=== PATIENT | female | born 1995 | race American Indian/Alaskan Native ===

== ENCOUNTER 2016-11-05 18:29 | Emergency (ER) | payer OTHER ==
[2016-11-05 19:10] LABS: Urine Drugs of Abuse Note Disclamer
[2016-11-05 19:18] LABS: Bilirubin,Urine NEG (Negative); Blood,Urine NEG (Negative); Ketones,Urine NEG (Negative); Leukocyte Esterase,Urine NEG (Negative); Mucus,Urine 1+ /HPF; Nitrite,Urine NEG (Negative); Protein,Urine <15 mg/dL mg/dL (Negative); Urobilinogen,Urine < 2.0 mg/dL (<2.0)
[2016-11-05 19:38] LABS: Basophils % (Auto) 0.5 % (0.0-1.8); Eosinophils % (Auto) 1.5 % (0.0-4.3); Hematocrit 40.8 % (30.3-42.9); Hemoglobin 13.1 gm/dl (10.1-14.3); Mean Corpuscular HGB Conc 32 % (30-34); Mean Corpuscular Hemoglobin 27 pg (28-32); Mean Corpuscular Volume 84 fl (79-97); Platelet Count 308 K/mm3 (140-440); Red Blood Count 4.88 M/mm3 (3.65-5.03); Red Cell Distribution Width 13.4 % (13.2-15.2); White Blood Count 8.3 K/mm3 (4.5-11.0)
[2016-11-05 19:54] LABS: Anion Gap 17 mmol/L; BUN/Creatinine Ratio 15.71; Blood Urea Nitrogen 11 mg/dL (7-17); Calcium 9.4 mg/dL (8.4-10.2); Carbon Dioxide 26 mmol/L (22-30); Chloride 100.7 mmol/L (98-107); Glucose 98 mg/dL (65-100); Potassium 3.8 mmol/L (3.6-5.0); Sodium 140 mmol/L (137-145)
--- NOTE | 2016-11-05 20:20 | Emergency Department Report ---
ED Psych HPI - General Chief Complaint: Psych Stated Complaint: SUICIDAL THOUGHTS Time Seen by Provider: 11/05/16 19:53 Source: patient Mode of arrival: Ambulatory - History of Present Illness Initial Comments: Patient is a 29-year-old female with history of ADHD and depression presents to the ER for suicidal ideations. Patient reports she was brought in by police that she has been feeling "down" and is requesting to be placed back on her second medications. Patient reports been 6 years since her last dose of any of her medications. However patient feels that she should be on her medications due to her highs and lows. Patient does report she did say she thought she would might want to hurt herself today but adamantly denies any plan and wishes not to . Denies hallucinations or hearing voices or homicidal ideations. Patient lives with family and has a steady job at the [employer]. Otherwise no fevers, chills, headaches, nausea, vomiting, chest pain, sugars of breath, abdominal pain, travel, or sick contacts. She also denies any substance abuse or alcohol use. MD Complaint: suicidal ideation - Related Data Home Medications Medication Instructions Recorded Confirmed Last Taken No Known Home Medications [No 11/05/16 11/05/16 Unknown Reported Home Medications] Allergies Allergy/AdvReac Type Severity Reaction Status Date / Time acetaminophen [From Tylenol] Allergy Angioedema Verified 03/02/16 12:45 ED Review of Systems ROS: Stated complaint: SUICIDAL THOUGHTS Other details as noted in HPI Comment: All other systems reviewed and negative ED Past Medical Hx - Past Medical History Previous Medical History?: Yes Hx Psychiatric Treatment: Yes (bi-polar and depression) Additional medical history: galllstones - Surgical History Past Surgical History?: No - Social History Smoking Status: Never Smoker Substance Use Type: Alcohol, Marijuana - Medications Home Medications: Home Medications Medication Instructions Recorded Confirmed Last Taken Type No Known Home Medications [No 11/05/16 11/05/16 Unknown History Reported Home Medications] ED Physical Exam - General Limitations: No Limitations General appearance: alert, in no apparent distress - Head Head exam: Present: atraumatic, normocephalic - Eye Eye exam: Present: normal appearance - ENT ENT exam: Present: mucous membranes moist - Neck Neck exam: Present: normal inspection - Respiratory Respiratory exam: Present: normal lung sounds bilaterally. Absent: respiratory distress - Cardiovascular Cardiovascular Exam: Present: regular rate, normal rhythm. Absent: systolic murmur, diastolic murmur, rubs, gallop - GI/Abdominal GI/Abdominal exam: Present: soft, normal bowel sounds - Extremities Exam Extremities exam: Present: normal inspection - Back Exam Back exam: Present: normal inspection - Neurological Exam Neurological exam: Present: alert, oriented X3 - Psychiatric Psychiatric exam: Present: normal affect, normal mood - Skin Skin exam: Present: warm, dry, intact, normal color. Absent: rash ED Course Vital Signs 11/05/16 11/05/16 19:04 19:05 Temperature 98.4 F Pulse Rate 67 Respiratory 18 18 Rate Blood Pressure 138/84 [Left] O2 Sat by Pulse 99 99 Oximetry ED Medical Decision Making - Lab Data Result diagrams: 11/05/16 19:26 11/05/16 19:26 Critical care attestation.: If time is entered above; I have spent that time in minutes in the direct care of this critically ill patient, excluding procedure time. ED Disposition Condition: Stable
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
[2016-11-06] MEDS: ZOLOFT PO SCH (17:15)
[2016-11-06] MEDS ORDERED: HALDOL IM ONE (20:23)
[2016-11-07] MEDS: ZOLOFT PO SCH (09:45)
--- NOTE | 2016-11-07 17:21 | Event Note ---
Date: 11/07/16 The patient is seen and examined by myself and in consultation with psychiatry on-call, Dr. Hedrick. The patient is not homicidal or suicidal. She has no complaints at this time. She is alert and oriented 3, with a GCS of 15, and an NIH score of 0. Psychiatry recommends a patient 1013 be discontinued. I concur. The patient will be discharged at this time, psychiatry's recommendations are appreciated. Vital Signs 11/05/16 11/05/16 11/06/16 19:04 19:05 06:55 Temperature 98.4 F 98.5 F Pulse Rate 67 64 Respiratory 18 18 18 Rate Blood Pressure 138/84 129/68 [Left] O2 Sat by Pulse 99 99 100 Oximetry 11/06/16 11/06/16 08:30 23:00 Temperature 98.6 F Pulse Rate 72 77 Respiratory 16 16 Rate Blood Pressure 110/71 104/59 [Left] O2 Sat by Pulse 99 99 Oximetry Laboratory Last Values WBC 8.3 K/mm3 (4.5-11.0) 11/05/16 19:26 RBC 4.88 M/mm3 (3.65-5.03) 11/05/16 19:26 Hgb 13.1 gm/dl (10.1-14.3) 11/05/16 19:26 Hct 40.8 % (30.3-42.9) 11/05/16 19:26 MCV 84 fl (79-97) 11/05/16 19:26 MCH 27 pg (28-32) L 11/05/16 19:26 MCHC 32 % (30-34) 11/05/16 19:26 RDW 13.4 % (13.2-15.2) 11/05/16 19:26 Plt Count 308 K/mm3 (140-440) 11/05/16 19:26 Lymph % (Auto) 29.3 % (13.4-35.0) 11/05/16 19:26 [place] % (Auto) 7.2 % (0.0-7.3) 11/05/16 19:26 Eos % (Auto) 1.5 % (0.0-4.3) 11/05/16 19:26 Baso % (Auto) 0.5 % (0.0-1.8) 11/05/16 19:26 Lymph # 2.4 K/mm3 (1.2-5.4) 11/05/16 19:26 [place] # 0.6 K/mm3 (0.0-0.8) 11/05/16 19:26 Eos # 0.1 K/mm3 (0.0-0.4) 11/05/16 19:26 Baso # 0.0 K/mm3 (0.0-0.1) 11/05/16 19:26 Seg Neutrophils % 61.5 % (40.0-70.0) 11/05/16 19:26 Seg Neutrophils # 5.1 K/mm3 (1.8-7.7) 11/05/16 19:26 Sodium 140 mmol/L (137-145) 11/05/16 19:26 Potassium 3.8 mmol/L (3.6-5.0) 11/05/16 19:26 Chloride 100.7 mmol/L (98-107) 11/05/16 19:26 Carbon Dioxide 26 mmol/L (22-30) 11/05/16 19:26 Anion Gap 17 mmol/L 11/05/16 19:26 BUN 11 mg/dL (7-17) 11/05/16 19:26 Creatinine 0.7 mg/dL (0.7-1.2) 11/05/16 19:26 Estimated GFR > 60 ml/min 11/05/16 19:26 BUN/Creatinine Ratio 15.71 % 11/05/16 19:26 Glucose 98 mg/dL (65-100) 11/05/16 19:26 Calcium 9.4 mg/dL (8.4-10.2) 11/05/16 19:26 HCG, Qual Negative (Negative) 11/05/16 19:26 Urine Color Yellow (Yellow) 11/05/16 18:59 Urine Turbidity Clear (Clear) 11/05/16 18:59 Urine pH 5.0 (5.0-7.0) 11/05/16 18:59 Ur Specific [place] 1.015 (1.003-1.030) 11/05/16 18:59 Urine Protein <15 mg/dl mg/dL (Negative) 11/05/16 18:59 Urine Glucose (UA) Neg mg/dL (Negative) 11/05/16 18:59 Urine Ketones Neg mg/dL (Negative) 11/05/16 18:59 Urine Blood Neg (Negative) 11/05/16 18:59 Urine Nitrite Neg (Negative) 11/05/16 18:59 Urine Bilirubin Neg (Negative) 11/05/16 18:59 Urine Urobilinogen < 2.0 mg/dL (<2.0) 11/05/16 18:59 Ur Leukocyte Esterase Neg (Negative) 11/05/16 18:59 Urine WBC (Auto) 4.0 /HPF (0.0-6.0) 11/05/16 18:59 Urine RBC (Auto) 2.0 /HPF (0.0-6.0) 11/05/16 18:59 U Epithel Cells (Auto) 9.0 /HPF (0-13.0) 11/05/16 18:59 Urine Mucus 1+ /HPF 11/05/16 18:59 Urine HCG, Qual Negative (Negative) 11/05/16 18:59 Urine Opiates Screen Presumptive negative 11/05/16 18:59 Urine Methadone Screen Presumptive negative 11/05/16 18:59 Ur Barbiturates Screen Presumptive negative 11/05/16 18:59 Ur Phencyclidine Scrn Presumptive negative 11/05/16 18:59 Ur Amphetamines Screen Presumptive negative 11/05/16 18:59 U Benzodiazepines Scrn Presumptive negative 11/05/16 18:59 Urine Cocaine Screen Presumptive negative 11/05/16 18:59 U Marijuana (THC) Screen Presumptive positive 11/05/16 18:59 Drugs of Abuse Note Disclamer 11/05/16 18:59 Plasma/Serum Alcohol < 0.01 gm% (0-0.07) 11/05/16 19:26
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
[2016-11-07 20:14] VITALS: BP 123/69
== END 2016-11-07 20:15 | disposition home or self-care (01) ==
LOC: ED 18:29 → EEVIPCON 18:29 → ED 11-07 20:15
DX: R45.851 Suicidal ideations (principal); F31.9 Bipolar disorder, unspecified; F12.90 Cannabis use, unspecified, uncomplicated
CPT/HCPCS: 36415; 80048; 80307; 81001; 81025; 84703; 85025; 96372; 99284; G0480; J1630; 80320

== ENCOUNTER 2017-01-14 00:29 | Emergency (ER) | payer SELFPAY ==
[2017-01-14 00:48] VITALS: BP 128/77
[2017-01-14 01:14] LABS: Bilirubin,Urine NEG (Negative); Blood,Urine LG (Negative); Ketones,Urine TR mg/dL (Negative); Leukocyte Esterase,Urine LG (Negative); Mucus,Urine 1+ /HPF; Nitrite,Urine NEG (Negative); Urobilinogen,Urine < 2.0 mg/dL (<2.0)
[2017-01-14 01:14] LABS: Basophils % (Auto) 0.8 % (0.0-1.8); Eosinophils % (Auto) 2.2 % (0.0-4.3); Hemoglobin 12.4 gm/dl (10.1-14.3); Mean Corpuscular HGB Conc 33 % (30-34); Mean Corpuscular Hemoglobin 27 pg (28-32); Mean Corpuscular Volume 83 fl (79-97); Platelet Count 285 K/mm3 (140-440); Red Blood Count 4.59 M/mm3 (3.65-5.03); Red Cell Distribution Width 13.9 % (13.2-15.2); White Blood Count 7.2 K/mm3 (4.5-11.0)
[2017-01-14 01:16] LABS: RBC,Urine > 182.0 /HPF (0.0-6.0); WBC,Urine > 182.0 /HPF (0.0-6.0)
[2017-01-14 01:37] LABS: Albumin 4.3 g/dL (3.9-5); Albumin/Globulin Ratio 1.5 %; Alkaline Phosphatase 60 units/L (35-129); Anion Gap 15 mmol/L; Bilirubin,Total < 0.20 mg/dL (0.1-1.2); Blood Urea Nitrogen 15 mg/dL (7-17); Calcium 8.8 mg/dL (8.4-10.2); Carbon Dioxide 25 mmol/L (22-30); Glucose 106 mg/dL (65-100); Lipase 43 units/L (13-60); Potassium 3.4 mmol/L (3.6-5.0); Sodium 141 mmol/L (137-145); Total Protein 7.2 g/dL (6.3-8.2)
[2017-01-14 02:09] LABS: Alanine Aminotransferase 18 units/L (7-56)
--- NOTE | 2017-01-14 03:35 | Ultrasound Report ---
FINAL REPORT PROCEDURE: US ABDOMEN COMPLETE TECHNIQUE: Real-time sonography in multiple planes of the abdomen was performed with image documentation. CPT 21672 HISTORY: abd pain COMPARISON: No prior studies are available for comparison. FINDINGS: Liver: Normal size and echotexture with no evidence of cystic or solid mass lesions. Gallbladder: There is cholelithiasis. The gallbladder is contracted. There is no gallbladder wall thickening or pericholecystic fluid. Intrahepatic bile ducts: Normal caliber . Extrahepatic bile ducts: Normal caliber. Pancreas: Obscured by bowel gas.. Aorta: Visualized portions appear normal. IVC: Visualized portions appear normal. RIGHT kidney: Normal echotexture. No focal renal mass, calculus, or hydronephrosis. Length: 10.6cm. LEFT kidney: Normal echotexture. No focal renal mass, calculus, or hydronephrosis . Length: 10.3cm. Spleen: Normal size and echotexture. No focal lesions. Intraperitoneal fluid: None . Other: None . IMPRESSION: There is cholelithiasis without specific evidence of cholecystitis or biliary ductal dilatation..
--- NOTE | 2017-01-14 18:13 | ED Elopement Review ---
ED Pt Elopement review - Results review Lab results: Laboratory Tests 01/14/17 01/14/17 01/14/17 00:54 01:00 01:00 WBC 7.2 RBC 4.59 Hgb 12.4 Hct 38.0 MCV 83 MCH 27 L MCHC 33 RDW 13.9 Plt Count 285 Lymph % (Auto) 27.8 [place] % (Auto) 5.4 Eos % (Auto) 2.2 Baso % (Auto) 0.8 Lymph # 2.0 [place] # 0.4 Eos # 0.2 Baso # 0.1 Seg Neutrophils % 63.8 Seg Neutrophils # 4.6 Sodium 141 Potassium 3.4 L Chloride 104.0 Carbon Dioxide 25 Anion Gap 15 BUN 15 Creatinine 0.6 L Estimated GFR > 60 BUN/Creatinine Ratio 25.00 Glucose 106 H Calcium 8.8 Total Bilirubin < 0.20 AST 16 ALT 18 Alkaline Phosphatase 60 Total Protein 7.2 Albumin 4.3 Albumin/Globulin Ratio 1.5 Lipase 43 HCG, Qual Urine Color Yellow Urine Turbidity Cloudy Urine pH 6.0 Ur Specific [place] 1.029 Urine Protein 100 mg/dl Urine Glucose (UA) Neg Urine Ketones Tr Urine Blood Lg Urine Nitrite Neg Urine Bilirubin Neg Urine Urobilinogen < 2.0 Ur Leukocyte Esterase Lg Urine WBC (Auto) > 182.0 H Urine RBC (Auto) > 182.0 U Epithel Cells (Auto) 7.0 Urine WBC Clumps 2+ Calcium Oxalate Crystal 3+ Urine Mucus 1+ 01/14/17 01:00 WBC RBC Hgb Hct MCV MCH MCHC RDW Plt Count Lymph % (Auto) [place] % (Auto) Eos % (Auto) Baso % (Auto) Lymph # [place] # Eos # Baso # Seg Neutrophils % Seg Neutrophils # Sodium Potassium Chloride Carbon Dioxide Anion Gap BUN Creatinine Estimated GFR BUN/Creatinine Ratio Glucose Calcium Total Bilirubin AST ALT Alkaline Phosphatase Total Protein Albumin Albumin/Globulin Ratio Lipase HCG, Qual Negative Urine Color Urine Turbidity Urine pH Ur Specific [place] Urine Protein Urine Glucose (UA) Urine Ketones Urine Blood Urine Nitrite Urine Bilirubin Urine Urobilinogen Ur Leukocyte Esterase Urine WBC (Auto) Urine RBC (Auto) U Epithel Cells (Auto) Urine WBC Clumps Calcium Oxalate Crystal Urine Mucus - Call Back decision Pt Call Back Decision: Call pt to return to ED JONATHON (patient's chart states that she is 13 weeks but negative test here. UTI with low- grade fever. Cholelithiasis on ultrasound)
== END 2017-01-14 05:30 | disposition left against medical advice (07) ==
LOC: ED 00:29
DX: R30.9 Painful micturition, unspecified (principal); R10.9 Unspecified abdominal pain; Z53.21 Procedure and treatment not carried out due to patient leaving prior to being seen by health care provider
CPT/HCPCS: 36415; 76700; 80053; 81001; 83690; 84703; 85025

== ENCOUNTER 2019-12-18 10:52 | Inpatient (IN) | payer OTHER ==
[2019-12-18 11:54] LABS: Bacteria,Urine 4+ /HPF (Negative); Bilirubin,Urine NEG (Negative); Blood,Urine MOD (Negative); Color,Urine Yellow (Yellow); Mucus,Urine FEW /HPF; Urobilinogen,Urine < 2.0 mg/dL (<2.0)
[2019-12-18] MEDS ORDERED: LACTATED RINGERS 1,000 ML IV SCH ×2 (12:00→13:00)
[2019-12-18] MEDS ORDERED: ACETAMINOPHEN 500 MG TAB PO ONE (12:00)
[2019-12-18] MEDS ORDERED: fentaNYL 100 MCG/2 ML INJ IV PRN (12:01)
[2019-12-18] MEDS ORDERED: LIDOCAINE (2%) 20 MG/1 ML VIAL 20 ML MDV INFILTRATI ONE (12:01)
[2019-12-18] MEDS ORDERED: TERBUTALINE 1 MG/1 ML INJ SUB-Q PRN (12:01)
[2019-12-18] MEDS ORDERED: CALCIUM GLUCONATE 1000 MG/10 ML INJ IV ONE (12:01)
[2019-12-18] MEDS ORDERED: TERBUTALINE 1 MG/1 ML INJ IVP PRN (12:01)
[2019-12-18] MEDS ORDERED: ONDANSETRON 4 MG/2 ML INJ IV PRN (12:01)
[2019-12-18] MEDS ORDERED: BUTORPHANOL 2 MG/1 ML INJ IV PRN ×2 (12:01)
[2019-12-18] MEDS ORDERED: MINERAL OIL 30 ML ORAL LIQD PO PRN (12:01)
[2019-12-18] MEDS ORDERED: NALOXONE 0.4 MG/1 ML INJ IV PRN (12:01)
[2019-12-18] MEDS: ACETAMINOPHEN 500 MG TAB ONE ×3 (12:25→13:54)
[2019-12-18] MEDS ORDERED: CALCIUM GLUCONATE 1,000 MG in SODIUM CHLORIDE 0.9% 100 ML IV ONE (13:00)
[2019-12-18] MEDS ORDERED: OXYTOCIN DRIP 30 UNITS/500 ML BAG IV SCH (13:00)
[2019-12-18] MEDS ORDERED: MAGNESIUM SULFATE 4 GM/100 ML BAG IV ONE (13:00)
[2019-12-18] MEDS ORDERED: DINOPROSTONE 10 MG VAG SUPP VG ONE (13:00)
[2019-12-18] MEDS ORDERED: AMPICILLIN/NS 2 GM/100 ML 2 GM/100 ML BAG IV ONE (13:00)
[2019-12-18 13:21] LABS: Hemoglobin 9.9 gm/dl (10.1-14.3); Mean Corpuscular HGB Conc 33 % (30-34); Mean Corpuscular Volume 81 fl (79-97); Platelet Count 428 K/mm3 (140-440); Red Blood Count 3.72 M/mm3 (3.65-5.03)
[2019-12-18] MEDS: LACTATED RINGERS 1,000 ML IV SCH (13:38)
[2019-12-18 13:42] LABS: Alanine Aminotransferase 8 units/L (7-56)
[2019-12-18] MEDS: MAGNESIUM SULFATE 40GM/1000ML 40 GM/1,000 ML BAG IV SCH (14:24)
[2019-12-18 15:37] LABS: Creatinine,Urine 47.9 mg/dL (0.1-20.0); Protein/Creatinine Ratio,Urine 0.75
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
[2019-12-18] MEDS ORDERED: BETAMET ACET/BETAMET NA PH 6 MG/ML INJ 5 ML MDV IM SCH (18:00)
[2019-12-18] MEDS: AMPICILLIN/NS 1 GM/50 ML 1 GM/50 ML BAG IV SCH (22:44)
[2019-12-19] MEDS: AMPICILLIN/NS 1 GM/50 ML 1 GM/50 ML BAG IV SCH ×4 (04:15→17:02)
[2019-12-19] MEDS: miSOPROStol 25 MCG TAB VG SCH ×3 (08:11→19:27)
--- NOTE | 2019-12-19 08:40 | Progress Note ---
Assessment and Plan - Patient Problems (1) Severe preeclampsia Current Visit: Yes Status: Acute Plan to address problem: Continue induction of labor as planned Subjective - Subjective Date of service: 12/19/19 Interval history: The patient is being admitted for induction of labor secondary to severe preeclampsia. She is status post removal of her Cervidil and is still closed however her cervix is soft. Cytotec has been placed. Patient reports: no new complaints Objective - Vital Signs Vital Signs: Vital Signs - 12hr 12/18/19 12/18/19 12/18/19 20:40 20:44 20:45 Pulse Rate 108 H 109 H 109 H Blood Pressure 125/56 O2 Sat by Pulse 97 99 Oximetry 12/18/19 12/18/19 12/18/19 20:50 20:55 21:00 Pulse Rate 107 H 108 H 113 H Blood Pressure O2 Sat by Pulse 98 98 98 Oximetry 12/18/19 12/18/19 12/18/19 21:05 21:10 21:14 Pulse Rate 107 H 110 H 112 H Blood Pressure 129/78 O2 Sat by Pulse 100 98 Oximetry 12/18/19 12/18/19 12/18/19 21:15 21:20 21:25 Pulse Rate 111 H 110 H 113 H Blood Pressure O2 Sat by Pulse 100 99 99 Oximetry 12/18/19 12/18/19 12/18/19 21:30 21:31 21:35 Pulse Rate 117 H 46 L 112 H Blood Pressure O2 Sat by Pulse 99 91 99 Oximetry 12/18/19 12/18/19 12/18/19 21:40 21:45 21:50 Pulse Rate 109 H 107 H 108 H Blood Pressure 142/77 O2 Sat by Pulse 99 100 98 Oximetry 12/18/19 12/18/19 12/18/19 21:55 22:00 22:05 Pulse Rate 111 H 113 H 113 H Blood Pressure O2 Sat by Pulse 97 95 98 Oximetry 12/18/19 12/18/19 12/18/19 22:10 22:14 22:15 Pulse Rate 109 H 109 H 114 H Blood Pressure 118/62 O2 Sat by Pulse 99 69 L 99 Oximetry 12/18/19 12/18/19 12/18/19 22:20 22:25 22:30 Pulse Rate 111 H 108 H 108 H Blood Pressure O2 Sat by Pulse 100 100 98 Oximetry 12/18/19 12/18/19 12/18/19 22:44 22:48 22:53 Pulse Rate 111 H 110 H 109 H Blood Pressure 123/70 O2 Sat by Pulse 98 98 Oximetry 12/18/19 12/18/19 12/18/19 22:58 23:03 23:14 Pulse Rate 112 H 119 H 115 H Blood Pressure 121/70 O2 Sat by Pulse 99 99 97 Oximetry 12/18/19 12/18/19 12/19/19 23:19 23:42 00:14 Pulse Rate 107 H 112 H 110 H Blood Pressure 148/77 O2 Sat by Pulse 97 99 Oximetry 12/19/19 12/19/19 12/19/19 00:44 01:14 01:44 Pulse Rate 109 H 103 H 100 H Blood Pressure 138/74 136/74 132/74 O2 Sat by Pulse Oximetry 12/19/19 12/19/19 12/19/19 02:14 02:44 03:15 Pulse Rate 102 H 101 H 107 H Blood Pressure 138/78 128/66 141/75 O2 Sat by Pulse Oximetry 12/19/19 12/19/19 12/19/19 03:44 04:14 04:44 Pulse Rate 103 H 100 H 96 H Blood Pressure 139/80 144/74 128/67 O2 Sat by Pulse Oximetry 12/19/19 12/19/19 12/19/19 05:14 05:44 06:14 Pulse Rate 98 H 106 H 103 H Blood Pressure 143/77 138/68 123/63 O2 Sat by Pulse Oximetry 12/19/19 12/19/19 12/19/19 06:44 06:50 06:55 Pulse Rate 105 H 104 H 99 H Blood Pressure 138/76 O2 Sat by Pulse 97 100 Oximetry 12/19/19 12/19/19 12/19/19 07:00 07:04 07:05 Pulse Rate 104 H 113 H 101 H Blood Pressure O2 Sat by Pulse 99 88 99 Oximetry 12/19/19 12/19/19 12/19/19 07:11 07:12 07:14 Pulse Rate 97 H 117 H 103 H Blood Pressure 145/102 O2 Sat by Pulse 99 92 Oximetry 12/19/19 12/19/19 12/19/19 07:16 07:21 07:26 Pulse Rate 94 H 101 H 103 H Blood Pressure O2 Sat by Pulse 100 100 99 Oximetry 12/19/19 12/19/19 12/19/19 07:31 07:36 07:41 Pulse Rate 100 H 101 H 101 H Blood Pressure O2 Sat by Pulse 98 98 97 Oximetry 12/19/19 12/19/19 12/19/19 07:43 07:44 07:46 Pulse Rate 34 L 101 H 101 H Blood Pressure 142/85 O2 Sat by Pulse 86 97 Oximetry 12/19/19 12/19/19 12/19/19 07:51 07:57 08:02 Pulse Rate 101 H 104 H 99 H Blood Pressure O2 Sat by Pulse 97 98 98 Oximetry 12/19/19 12/19/19 12/19/19 08:07 08:12 08:15 Pulse Rate 100 H 104 H 96 H Blood Pressure 164/77 O2 Sat by Pulse 99 99 Oximetry 12/19/19 12/19/19 12/19/19 08:17 08:22 08:28 Pulse Rate 98 H 107 H 100 H Blood Pressure O2 Sat by Pulse 98 100 100 Oximetry 12/19/19 12/19/19 08:33 08:36 Pulse Rate 100 H 107 H Blood Pressure O2 Sat by Pulse 100 76 L Oximetry - Labs Labs: Abnormal Labs 12/18/19 12/18/19 12/18/19 11:39 11:39 20:27 Hgb Hct MCH RDW Creatinine Magnesium 4.20 H Lactate Dehydrogenase Urine WBC (Auto) 79.0 H Urine Creatinine 47.9 H Urine Total Protein 36 H 12/18/19 12/18/19 12/19/19 Unknown Unknown 02:15 Hgb 9.9 L Hct 30.0 L MCH 27 L RDW 17.0 H Creatinine 0.4 L Magnesium 4.30 H Lactate Dehydrogenase 225 H Urine WBC (Auto) Urine Creatinine Urine Total Protein Laboratory Results - last 24 hr 12/18/19 12/18/19 12/18/19 11:39 11:39 20:27 WBC RBC Hgb Hct MCV MCH MCHC RDW Plt Count Creatinine Estimated GFR Uric Acid Magnesium 4.20 H AST ALT Lactate Dehydrogenase Urine Color Yellow Urine Turbidity Cloudy Urine pH 7.0 Ur Specific [place] 1.008 Urine Protein 30 mg/dl Urine Glucose (UA) Neg Urine Ketones Neg Urine Blood Mod Urine Nitrite Neg Urine Bilirubin Neg Urine Urobilinogen < 2.0 Ur Leukocyte Esterase Lg Urine WBC (Auto) 79.0 H Urine RBC (Auto) 61.0 U Epithel Cells (Auto) 10.0 Urine Bacteria (Auto) 4+ Urine Mucus Few Urine Creatinine 47.9 H Protein/Creatinin Ratio 0.75 Urine Total Protein 36 H Syphilis IgG Antibody Blood Type Antibody Screen 12/18/19 12/18/19 12/18/19 Unknown Unknown Unknown WBC 6.4 RBC 3.72 Hgb 9.9 L Hct 30.0 L MCV 81 MCH 27 L MCHC 33 RDW 17.0 H Plt Count 428 Creatinine 0.4 L Estimated GFR > 60 Uric Acid 6.0 Magnesium AST 16 ALT 8 Lactate Dehydrogenase 225 H Urine Color Urine Turbidity Urine pH Ur Specific [place] Urine Protein Urine Glucose (UA) Urine Ketones Urine Blood Urine Nitrite Urine Bilirubin Urine Urobilinogen Ur Leukocyte Esterase Urine WBC (Auto) Urine RBC (Auto) U Epithel Cells (Auto) Urine Bacteria (Auto) Urine Mucus Urine Creatinine Protein/Creatinin Ratio Urine Total Protein Syphilis IgG Antibody Non-reactive Blood Type Antibody Screen 12/18/19 12/19/19 Unknown 02:15 WBC RBC Hgb Hct MCV MCH MCHC RDW Plt Count Creatinine Estimated GFR Uric Acid Magnesium 4.30 H AST ALT Lactate Dehydrogenase Urine Color Urine Turbidity Urine pH Ur Specific [place] Urine Protein Urine Glucose (UA) Urine Ketones Urine Blood Urine Nitrite Urine Bilirubin Urine Urobilinogen Ur Leukocyte Esterase Urine WBC (Auto) Urine RBC (Auto) U Epithel Cells (Auto) Urine Bacteria (Auto) Urine Mucus Urine Creatinine Protein/Creatinin Ratio Urine Total Protein Syphilis IgG Antibody Blood Type A POSITIVE Antibody Screen Negative
[2019-12-19] MEDS: MAGNESIUM SULFATE 40GM/1000ML 40 GM/1,000 ML BAG IV SCH ×2 (09:02→21:56)
[2019-12-19] MEDS ORDERED: fentaNYL-BUPIV 2 MCG/ML-0.125% 200 MCG/100 ML BAG EPIDURAL ONE (17:40)
[2019-12-19] MEDS ORDERED: DEXMEDETOMIDINE 200 MCG/2 ML VIAL IV ONE (17:40)
--- NOTE | 2019-12-19 18:00 | Anesthesia Consultation ---
Anesthesia Consult and Med Hx Date of service: 12/19/19 - Airway Anesthetic Teeth Evaluation: Good ROM Head & Neck: Adequate Mental/Hyoid Distance: Adequate Mallampati Class: Class II Intubation Access Assessment: Probably Good - Pulmonary Exam CTA: Yes - Cardiac Exam Cardiac Exam: RRR - Pre-Operative Health Status ASA Pre-Surgery Classification: ASA3 Proposed Anesthetic Plan: Epidural - Pulmonary Hx Asthma: No - Cardiovascular System Hx Hypertension: Yes (Pre eclampsia) - Central Nervous System Hx Seizures: No Hx Psychiatric Problems: No - Endocrine Hx Renal Disease: No Hx Hypothyroidism: No Hx Hyperthyroidism: No - Hematic Hx Anemia: Yes Hx Sickle Cell Disease: No - Other Systems Hx Alcohol Use: No
--- NOTE | 2019-12-19 18:00 | Progress Note ---
Labor Epidural - Labor Epidural Start Time: 17:44 Stop Time: 17:50 Performed by:: KRISTAL SHANE Procedure: Patient is requesting epidural for labor pain. H&P, and labs reviewed. Procedure explained, questions answered, consent obtained. Patient in sitting position with blood pressure cuff and pulse ox on and working. Timeout performed immediately before start of procedure. Sterile betadine prep/drape. 3 mL 1% lidocaine skin wheal at L[3]-L[4]. 18-gauge Touhy epidural needle advanced to [id number] with saline at 9 cm. 27-gauge spinal needle advanced until clear, free-flowing CSF. Intrathecal dexmedetomidine [10] mcg administered and needle removed. Epidural catheter advanced to 14 cm, negative aspiration for blood and csf, negative test dose 3 ml 1.5% lidocaine with epinephrine. Sterile steri-strips and tegaderm applied, followed by tape reinforcement. Patient tolerated procedure well.
[2019-12-19] MEDS ORDERED: ePHEDrine SULFATE 50 MG/1 ML INJ IV PRN (18:01)
[2019-12-19] MEDS ORDERED: NALOXONE 2 MG/2 ML INJ IV PRN (18:01)
[2019-12-19] MEDS: ePHEDrine SULFATE 50 MG/1 ML INJ IV PRN ×3 (18:07→18:17)
[2019-12-19] MEDS ORDERED: HETASTARCH 6% 500 ML IV ONE (18:25)
[2019-12-19] MEDS ORDERED: ePHEDrine SULFATE 50 MG/1 ML INJ IV ONE (18:28)
[2019-12-19] MEDS ORDERED: METOCLOPRAMIDE 10 MG/2 ML INJ IV ONE (18:32)
[2019-12-19] MEDS ORDERED: BICITRA ORAL LIQD 30ML PO ONE (18:32)
[2019-12-19] MEDS ORDERED: FAMOTIDINE 20 MG/2 ML INJ IV ONE (18:32)
[2019-12-19] MEDS ORDERED: LACTATED RINGERS 1,000 ML IV SCH (19:00)
[2019-12-19] MEDS ORDERED: OXYTOCIN 20 UNIT/1000ML DRIP 20 UNITS/1,000 ML BAG IV SCH ×2 (19:00→21:00)
[2019-12-19] MEDS ORDERED: ceFAZolin/Water 2 GM/20 ML 2 GM/20 ML SYRINGE IV NR (19:00)
[2019-12-19] MEDS ORDERED: fentaNYL-BUPIV 2 MCG/ML-0.125% 200 MCG/100 ML BAG EPIDURAL SCH (19:00)
[2019-12-19] MEDS: LACTATED RINGERS 1,000 ML IV SCH (19:04)
[2019-12-19] MEDS ORDERED: LIDOCAINE MPF (2%) 20 MG/1 ML VIAL 5 ML ONE ×3 (19:29→20:12)
[2019-12-19] MEDS ORDERED: PHENYLEPHRINE/NS 1,000 MCG/10 ML SYRINGE (OR USE) IV ONE (19:41)
[2019-12-19] MEDS ORDERED: OXYTOCIN 10 UNIT/1 ML INJ ONE (20:01)
--- NOTE | 2019-12-19 20:23 | Procedure Note ---
OB Delivery Note - Delivery Date of Delivery: 12/19/19 Surgeon: GERARDO GÓMEZ Estimated blood loss: other (600 mL) - Section Preop diagnosis: nonreassuring FHR tracing Postop diagnosis: same section procedure: section, primary low transverse Disposition: PACU Complications: other (Placental abruption) - A at 1 minute: 8 at 5 minutes: 9 Infant Gender: Male (Weight 6 pounds 0 ounces)
--- NOTE | 2019-12-19 20:23 | Operative Report ---
Operative Report Operative Report: Date of surgery: December 19, 2019 Preoperative diagnosis: at 36.3 weeks; severe preeclampsia; vaginal bleeding Postoperative diagnosis: Same as above; placental abruption Procedure: Primary low transverse delivery Surgeon: Gely Garcia M.D. Anesthesia: Regional Estimated blood loss: 600 mL IV fluids: 1200 mL Urine output: 100 mL Findings: Liveborn male infant with Apgars of 8 and 9 weight 6 pounds 0 ounces Indications: 24-year-old G1, P0 at 36+3 weeks who was being induced for severe preeclampsia as evident by elevated blood pressures and consistent headaches. The patient was undergoing induction of labor however her intrapartum course was complicated by vaginal bleeding after amniotomy. The tracing indicated a low baseline heart rate in the 110s to 120s with evidence of intermittent late decelerations. The patient was counseled for primary delivery for suspicion of placental abruption. Procedure: The patient was taken to the operating room and given regional anesthesia without complication. She was prepped and draped in a normal sterile fashion. A Pfannenstiel skin incision was made down to layer the fascia which was nicked in the midline extended laterally with the Bovie cautery. The superior aspect of the rectus f ascia was grasped with Island clamps x2 and the rectus muscles off sharply. This was done in inferior fashion as well. The rectus muscle midline and peritoneum entered bluntly. An Gregory retractor was then inserted. A bladder blade was placed. The vesicouterine peritoneum was then entered sharply with Metzenbaum scissors. A bladder flap was created digitally. A low transverse uterine incision was then made and extended digitally. There was blood stained fluid upon entry into the uterine cavity. The head was delivered through the incision with fundal pressure. The cord was clamped and cut x2 and infant was passed off to pediatrics. After delivery of the there was evidence of a large organized clot that was delivered prior to delivery of the placenta. The placenta was then manually extracted. The uterus was then exteriorized and cleared of clots and debris. The uterine incision was then closed in a running locked fashion with 0 Vicryl additional imbricating stitch was applied for 2 layer closure. The posterior cul-de-sac was then copiously irrigated. The uterus was replaced back into the abdomen and pelvis were the gutters were then irrigated. The Gregory retractor was then removed. The peritoneum was then reapproximated with 3-0 Vicryl incorporating the rectus muscle. The fascia was then closed with 0 Vicryl in a running fashion. The skin was then reapproximated with 3-0 Monocryl on a Maxime needle subcuticular fashion. Steri-Strips to place across the incision and a Crede procedures performed at the end of the surgery. A pressure dressing was applied to the incision. The surgery productive of a liveborn male with Apgars of 8 and 9 weight 6 pounds 0 ounces. The patient was taken to the recovery room in stable condition. All sponge laps and needle counts correct x2.
[2019-12-19] MEDS ORDERED: ACETAMINOPHEN 325 MG TAB PO PRN (20:27)
[2019-12-19] MEDS ORDERED: IBUPROFEN 800 MG TAB PO PRN (20:27)
[2019-12-19] MEDS ORDERED: WITCH HAZEL/ GLYCERIN PAD TP PRN (20:27)
[2019-12-19] MEDS ORDERED: MORPHINE 4 MG/1 ML INJ IV PRN (20:27)
[2019-12-19] MEDS ORDERED: LANOLIN/ZINC/DIMETHICONE (LANSINOH) 7 GM TP PRN (20:27)
[2019-12-19] MEDS ORDERED: KETOROLAC 30 MG/1 ML INJ IV PRN (20:27)
[2019-12-19] MEDS ORDERED: NALOXONE 0.4 MG/1 ML INJ IV PRN (20:27)
[2019-12-19] MEDS ORDERED: KETOROLAC 30 MG/1 ML INJ ONE (20:28)
--- NOTE | 2019-12-19 21:17 | Post Anesthesia Evaluation ---
- Post Anesthesia Evaluation Patient Participated: Yes Airway Patent: Yes Stable Respiratory Function: Yes Nausea/Vomiting: No Temp > 96.8F: Yes Pain Manageable: Yes Adequeate Hydration: Yes Anesthesia Complications: No Block Receding Appropriately: Yes
[2019-12-19] MEDS: OXYTOCIN 20 UNIT/1000ML DRIP 20 UNITS/1,000 ML BAG IV SCH (21:58)
[2019-12-19] MEDS ORDERED: MAGNESIUM SULFATE 40GM/1000ML 40 GM/1,000 ML BAG IV SCH (22:00)
[2019-12-19 23:03] LABS: Basophils % (Auto) 0.1 % (0.0-1.8); Hematocrit 27.4 % (30.3-42.9); Hemoglobin 8.9 gm/dl (10.1-14.3); Lymphocytes # (Auto) 0.8 K/mm3 (1.2-5.4); Lymphocytes % (Auto) 8.5 % (13.4-35.0); Mean Corpuscular HGB Conc 33 % (30-34); Mean Corpuscular Volume 81 fl (79-97); Monocytes # (Auto) 0.4 K/mm3 (0.0-0.8); Monocytes % (Auto) 3.9 % (0.0-7.3); Platelet Count 406 K/mm3 (140-440); Red Blood Count 3.38 M/mm3 (3.65-5.03); Red Cell Distribution Width 16.7 % (13.2-15.2)
[2019-12-20 07:48] LABS: Hematocrit 26.3 % (30.3-42.9); Hemoglobin 8.4 gm/dl (10.1-14.3)
--- NOTE | 2019-12-20 08:06 | Progress Note ---
Assessment and Plan A: POD1 s/p pLTCS Preeclampsia with severe features Labile BP, afebrile Acute on chronic anemia due to and blood loss P: Continue mag sulfate Ferrous sulfate supplementation Closely monitor clinical status Subjective - Subjective Date of service: 12/20/19 Principal diagnosis: s/p primary LTCS, placental abruption, preeclampsia Interval history: POD1 s/p primary LTCS for placental abruption. On Magnesium sulfate Patient reports: appetite normal, pain well controlled, flatus, other (layton catheter in palce) Olds: doing well, nursing well (poor latch on left breast) Objective - Vital Signs Latest vital signs: Vital Signs Temp Pulse Resp BP Pulse Ox 12/20/19 07:56 94 H 98 12/20/19 07:51 99 H 97 12/20/19 07:44 97 H 99 12/20/19 07:39 101 H 100 12/20/19 07:34 104 H 99 12/20/19 07:29 101 H 99 12/20/19 07:24 93 H 99 12/20/19 07:19 102 H 100 12/20/19 07:14 104 H 99 12/20/19 07:13 103 H 142/79 12/20/19 07:09 102 H 99 12/20/19 07:03 102 H 99 12/20/19 06:58 104 H 99 12/20/19 06:53 105 H 98 12/20/19 06:48 102 H 98 12/20/19 06:43 104 H 98 12/20/19 06:41 109 H 0 L 12/20/19 06:38 103 H 100 12/20/19 06:33 107 H 98 12/20/19 06:28 102 H 98 12/20/19 06:13 98 H 139/87 12/20/19 05:13 100 H 134/76 12/20/19 05:01 105 H 98 12/20/19 04:56 108 H 98 12/20/19 04:50 101 H 99 12/20/19 04:45 101 H 99 12/20/19 04:40 100 H 99 12/20/19 04:35 100 H 99 12/20/19 04:30 94 H 99 12/20/19 04:25 96 H 98 12/20/19 04:20 97 H 98 12/20/19 04:15 92 H 98 12/20/19 04:13 97 H 157/90 12/20/19 04:10 92 H 99 12/20/19 04:05 97 H 98 12/20/19 04:00 96 H 99 12/20/19 03:55 101 H 98 12/20/19 03:50 99 H 99 12/20/19 03:49 50 L 84 12/20/19 03:45 100 H 100 12/20/19 03:40 102 H 97 12/20/19 03:35 100 H 97 12/20/19 03:30 98 H 98 12/20/19 03:25 99 H 96 12/20/19 03:20 101 H 96 12/20/19 03:15 99 H 96 12/20/19 03:13 96 H 110/56 12/20/19 03:10 98 H 95 12/20/19 03:05 100 H 96 12/20/19 03:00 99 H 96 12/20/19 02:55 101 H 96 12/20/19 02:50 99 H 96 12/20/19 02:45 104 H 96 12/20/19 02:40 98 H 96 12/20/19 02:35 105 H 98 12/20/19 02:28 105 H 96 12/20/19 02:23 102 H 97 12/20/19 02:18 104 H 99 12/20/19 02:13 101 H 98 12/20/19 02:12 111 H 131/72 12/20/19 02:08 106 H 97 12/20/19 02:03 103 H 97 12/20/19 01:58 114 H 97 12/20/19 01:53 99 H 98 12/20/19 01:24 117 H 91 12/20/19 01:23 118 H 96 12/20/19 01:17 103 H 97 12/20/19 01:13 103 H 133/70 12/20/19 01:12 102 H 100 12/20/19 01:07 104 H 98 12/20/19 01:02 114 H 98 12/20/19 00:57 106 H 99 12/20/19 00:52 107 H 98 12/20/19 00:47 107 H 98 12/20/19 00:42 108 H 99 12/20/19 00:37 111 H 98 06/17/20 00:32 114 H 99 12/20/19 00:27 96 H 100 12/20/19 00:22 107 H 99 12/20/19 00:17 111 H 99 12/20/19 00:16 110 H 89 12/20/19 00:12 114 H 148/83 99 12/20/19 00:07 102 H 99 12/20/19 00:02 112 H 98 12/19/19 23:57 111 H 99 12/19/19 23:52 107 H 99 12/19/19 23:51 107 H 86 12/19/19 23:47 118 H 99 12/19/19 23:42 112 H 99 12/19/19 23:37 107 H 99 12/19/19 23:32 110 H 98 12/19/19 23:27 114 H 99 12/19/19 23:22 107 H 99 12/19/19 23:17 118 H 98 12/19/19 23:12 112 H 98 12/19/19 23:07 113 H 146/81 98 12/19/19 22:47 106 H 20 161/86 98 12/19/19 22:30 114 H 20 141/81 98 12/19/19 22:15 112 H 18 121/81 98 12/19/19 21:41 107 H 18 128/82 98 12/19/19 21:25 107 H 20 138/75 96 12/19/19 21:05 103 H 11 L 121/76 99 12/19/19 20:50 99 H 25 H 123/69 99 12/19/19 20:45 94 H 22 124/72 100 12/19/19 20:40 97.2 F L 100 H 26 H 124/72 98 12/19/19 19:10 100 H 94 12/19/19 19:09 98 H 95 12/19/19 19:08 107 H 117/58 12/19/19 19:05 103 H 119/57 12/19/19 19:04 102 H 97 12/19/19 19:02 104 H 116/56 12/19/19 18:59 107 H 119/56 97 12/19/19 18:57 99 H 94 12/19/19 18:56 97 H 117/56 12/19/19 18:54 100 H 99 12/19/19 18:53 93 H 120/56 06/16/20 18:50 100 H 119/58 061620 18:49 99 H 95 061620 18:47 102 H 117/58 061620 18:44 96 H 114/56 1620 18:41 102 H 110/54 061620 18:38 109 H 109/52 1620 18:35 110 H 108/54 1620 18:32 115 H 108/50 1620 18:29 110 H 96/49 1620 18:26 102 H 85/47 1620 18:24 105 H 96 20 18:23 100 H 85/43 1620 18:21 88 84/46 20 18:20 100 H 87/49 1620 18:19 102 H 94 20 18:17 110 H 91/54 93 20 18:14 99 H 95/46 97 12/19/19 18:12 75 78 L 12/19/19 18:11 93 H 99/52 20 18:09 87 100 20 18:08 84 100/46 20 18:05 83 100/46 20 18:04 80 100 20 18:02 95 H 112/53 12/19/19 18:01 101 H 94 20 17:59 101 H 146/69 100 061620 17:56 113 H 146/85 1620 17:55 109 H 92 20 17:54 99 H 100 1620 17:53 107 H 146/71 1620 17:50 103 H 152/75 1620 17:49 101 H 100 061620 17:44 103 H 100 1620 17:31 87 97 061620 17:26 101 H 99 1620 17:21 100 H 99 20 17:16 105 H 98 1620 17:14 101 H 130/81 061620 17:11 101 H 98 1620 17:06 104 H 98 1620 17:01 100 H 98 20 16:56 95 H 99 0620 16:45 90 110/67 12/19/19 16:40 108 H 70 L 12/19/19 16:39 96 H 97 12/19/19 16:34 89 99 12/19/19 16:30 98 H 87 12/19/19 16:29 95 H 98 12/19/19 16:24 92 H 99 12/19/19 16:19 91 H 99 12/19/19 16:17 101 H 88 12/19/19 16:14 97 H 170/84 98 12/19/19 16:09 97 H 100 12/19/19 16:05 97 H 69 L 12/19/19 16:04 101 H 98 12/19/19 15:59 95 H 99 12/19/19 15:54 101 H 99 12/19/19 15:49 96 H 92 12/19/19 15:44 95 H 146/80 99 12/19/19 15:39 100 H 76 L 12/19/19 15:34 102 H 99 12/19/19 15:28 97 H 97 12/19/19 15:24 85 0 L 12/19/19 15:23 111 H 97 12/19/19 15:18 100 H 98 12/19/19 15:15 92 H 136/71 12/19/19 15:13 99 H 99 12/19/19 15:08 103 H 99 12/19/19 15:03 105 H 98 12/19/19 14:58 100 H 97 12/19/19 14:53 101 H 97 12/19/19 14:48 97 H 98 12/19/19 14:44 100 H 141/76 12/19/19 14:43 94 H 100 12/19/19 14:38 98 H 97 12/19/19 14:33 104 H 99 12/19/19 14:30 98.8 F 12/19/19 14:28 104 H 97 12/19/19 14:23 103 H 98 12/19/19 14:18 97 H 98 12/19/19 14:14 101 H 129/74 12/19/19 14:13 104 H 97 12/19/19 14:08 106 H 97 12/19/19 14:03 95 H 98 12/19/19 13:58 107 H 98 12/19/19 13:55 99 H 147/79 12/19/19 13:53 95 H 99 12/19/19 13:15 108 H 128/69 12/19/19 12:44 102 H 148/88 12/19/19 12:14 106 H 175/104 12/19/19 11:54 107 H 100 12/19/19 11:49 104 H 100 12/19/19 11:44 110 H 124/83 98 12/19/19 11:43 107 H 94 12/19/19 11:39 102 H 99 12/19/19 11:34 104 H 99 12/19/19 11:29 112 H 98 12/19/19 11:24 101 H 99 12/19/19 11:19 104 H 98 12/19/19 11:14 108 H 98 12/19/19 11:13 104 H 128/63 12/19/19 11:12 99 F 20 98 12/19/19 10:14 107 H 136/82 12/19/19 09:44 99 H 138/82 12/19/19 09:14 90 140/71 12/19/19 08:44 100 H 142/79 12/19/19 08:36 107 H 76 L 12/19/19 08:33 100 H 100 12/19/19 08:28 100 H 100 12/19/19 08:22 107 H 100 12/19/19 08:17 98 H 98 12/19/19 08:15 96 H 164/77 12/19/19 08:12 104 H 99 12/19/19 08:07 100 H 99 Intake and Output 12/19/19 12/20/19 12/20/19 23:59 07:59 15:59 Intake Total 1508.133 Output Total 500 1600 Balance 1008.133 -1600 Intake: IV 1508.133 PITOCin/NS 30 UNIT/500ML 8.133 30 units In 500 ml @ 2 mls/hr IV TITR ARIEL Rx#: [id number] Output: Urine 500 1600 Indwelling Catheter 1600 Other: Total, Output Amount 250 Estimated Blood Loss 600 - Exam Lungs: Present: Normal air movement Abdomen: Present: soft. Absent: distention Uterus: Present: firm, fundal height below umbilicus. Absent: bogginess Extremities: Present: normal Incision: Present: dressed - Labs Labs: Abnormal lab results 12/19/19 12/19/1920 Range/Units 10:18 16:26 22:37 RBC (3.65-5.03) M/mm3 Hgb (10.1-14.3) gm/dl Hct (30.3-42.9) % MCH (28-32) pg RDW (13.2-15.2) % Lymph % (Auto) (13.4-35.0) % Lymph # (1.2-5.4) K/mm3 Seg Neutrophils % (40.0-70.0) % Seg Neutrophils # (1.8-7.7) K/mm3 Magnesium 3.80 H 4.60 H 3.70 H (1.7-2.3) mg/dL 12/19/19 12/20/19 12/20/19 Range/Units 22:37 03:51 07:09 RBC 3.38 L (3.65-5.03) M/mm3 Hgb 8.9 L 8.4 L (10.1-14.3) gm/dl Hct 27.4 L 26.3 L (30.3-42.9) % MCH 27 L (28-32) pg RDW 16.7 H (13.2-15.2) % Lymph % (Auto) 8.5 L (13.4-35.0) % Lymph # 0.8 L (1.2-5.4) K/mm3 Seg Neutrophils % 87.5 H (40.0-70.0) % Seg Neutrophils # 8.3 H (1.8-7.7) K/mm3 Magnesium 5.20 H (1.7-2.3) mg/dL
[2019-12-20] MEDS: OXYTOCIN 20 UNIT/1000ML DRIP 20 UNITS/1,000 ML BAG IV SCH (08:31)
[2019-12-20] MEDS: oxyCODONE /ACETAMINOPHEN 5-325MG TAB PO PRN ×2 (08:46→18:11)
[2019-12-20] MEDS: FERROUS SULFATE 325 MG TAB PO SCH (11:14)
[2019-12-20] MEDS ORDERED: NIFEdipine XL 30 MG TAB PO SCH (16:00)
[2019-12-20] MEDS: MAGNESIUM SULFATE 40GM/1000ML 40 GM/1,000 ML BAG IV SCH (18:03)
[2019-12-21] MEDS: FERROUS SULFATE 325 MG TAB PO SCH ×3 (01:46→23:00)
[2019-12-21] MEDS: oxyCODONE /ACETAMINOPHEN 5-325MG TAB PO PRN ×4 (01:46→23:04)
--- NOTE | 2019-12-21 08:10 | Progress Note ---
Assessment and Plan A: POD2 s/p pLTCS Preeclampsia with severe features Labile BP, afebrile Acute on chronic anemia due to and blood loss P: Continue mag sulfate Ferrous sulfate supplementation Labetalol 200mg BID Closely monitor clinical status Subjective - Subjective Date of service: 12/21/19 Principal diagnosis: s/p primary LTCS, placental abruption, preeclampsia Interval history: POD2 s/p primary LTCS for placental abruption, preeclampsia s/p Magnesium sulfate Patient reports: appetite normal, voiding normally, pain well controlled, flatus, ambulating normally : doing well, nursing well Objective - Vital Signs Latest vital signs: Vital Signs Temp Pulse Resp BP BP Pulse Ox 12/21/19 04:12 98.8 F 113 H 20 140/89 95 12/21/19 02:46 18 12/21/19 01:46 18 12/20/19 23:01 98.1 F 91 H 18 133/90 98 12/20/19 21:13 83 154/90 12/20/19 21:05 90 143/94 12/20/19 20:13 83 143/94 12/20/19 19:39 98.3 F 86 18 155/79 12/20/19 19:18 86 155/79 12/20/19 19:13 88 161/102 12/20/19 18:13 88 154/100 12/20/19 18:11 18 12/20/19 17:13 93 H 166/97 12/20/19 16:13 84 154/84 12/20/19 16:11 98.0 F 80 18 125/67 12/20/19 15:13 80 125/67 12/20/19 14:13 79 161/98 12/20/19 13:12 85 138/85 97 12/20/19 13:07 82 97 12/20/19 13:01 87 97 12/20/19 12:56 83 98 12/20/19 12:51 89 98 12/20/19 12:48 98.0 F 91 H 18 143/85 97 12/20/19 12:46 88 143/85 98 12/20/19 12:13 91 H 169/101 12/20/19 11:13 94 H 135/67 12/20/19 10:13 91 H 123/66 12/20/19 09:13 98 H 129/60 12/20/19 08:46 18 12/20/19 08:13 93 H 126/65 Intake and Output 12/20/19 12/21/19 12/21/19 23:59 07:59 15:59 Intake Total 3900 240 Output Total 3550 800 Balance 350 -560 Intake: IV 2000 MAGNESIUM SULFATE 40GM/ 1000 1000ML 40 gm In 1,000 ml @ 2 GM/HR 50 mls/hr IV DIRECT ARIEL Rx#:[id number] MAGNESIUM SULFATE 40GM/ 1000 1000ML 40 gm In 1,000 ml @ 2 GM/HR 50 mls/hr IV DIRECT ARIEL Rx#: [id number] Oral 1900 240 Output: Urine 3550 800 Indwelling Catheter 3550 Void 800 Other: Total, Intake Amount 1000 240 Total, Output Amount 800 800 # Voids Void 1 - Exam Breasts: Present: normal, Lungs: Present: Normal air movement Abdomen: Present: soft. Absent: distention Uterus: Present: firm, fundal height below umbilicus. Absent: bogginess Extremities: Present: normal Incision: Present: dressed - Labs Labs: Abnormal lab results 12/20/19 12/20/19 12/20/19 Range/Units 07:09 14:51 20:02 Magnesium 5.60 H 5.80 H 5.50 H (1.7-2.3) mg/dL 12/21/19 Range/Units 04:54 Magnesium 3.20 H (1.7-2.3) mg/dL
--- NOTE | 2019-12-22 08:07 | Progress Note ---
Assessment and Plan A: POD#3 s/p primary section at 36 wks secondary to severe preeclampsia (s/p 24 hrs magnesium sulfate) , placenta abruption, obesity Acute on chronic blood loss anemia P: Routine postoperative care. Discharge today with follow up in 1 wk for BP check Subjective - Subjective Date of service: 12/22/19 Principal diagnosis: s/p primary LTCS, placental abruption, preeclampsia Interval history: Pt without complaints. Patient reports: appetite normal, pain well controlled, flatus, bowel movement, ambulating normally, no dizzy ambulation : doing well Objective - Vital Signs Latest vital signs: Vital Signs Temp Pulse Resp BP Pulse Ox 12/22/19 00:04 18 12/22/19 00:01 98.2 F 108 H 20 122/73 93 12/21/19 23:04 18 12/21/19 23:00 88 145/92 12/21/19 15:35 98.4 F 103 H 20 141/88 96 Intake and Output 12/21/19 12/22/19 12/22/19 22:59 06:59 14:59 Intake Total 366 480 Balance 366 480 Intake: Oral 366 Intake, Free Water 480 Other: Total, Intake Amount 126 # Voids Void 1 1 - Exam Breasts: Present: deferred Abdomen: Present: soft (obese ) Uterus: Present: fundal height below umbilicus Extremities: Present: edema (trace) Incision: Present: intact
--- NOTE | 2019-12-22 08:10 | Discharge Summary ---
Providers - Providers Date of Admission: 12/18/19 14:25 Date of discharge: 12/22/19 Attending physician: SUYAPA PENNINGTON Primary care physician: GRAPHIC COORDINATOR Hospitalization Reason for admission: induction of labor (Severe Preeclampsia ) Delivery: Procedure: section, primary low transverse Procedure details: Please see operative report Incision: intact Other procedures: none complications: none Discharge diagnosis: delivery [place] baby: male Hospital course: This patient was admitted for induction of labor secondary to severe preeclampsia. She ultimately required a primary section which she tolerated well. She received IV magnesium sulfate for 24 hours after delivery for seizure prophylaxis. The remainder of her course was uncomplicated. The patient met discharge criteria on postoperative day #3. She will follow-up in 1 week in the office for blood pressure check. Condition at discharge: Stable Disposition: TO HOME OR SELFCARE - Discharge Diagnoses (1) S/P section Status: Acute (2) Placental abruption Status: Acute (3) Obesity (BMI 30.0-34.9) Status: Acute (4) Severe preeclampsia Status: Acute Qualifiers: Trimester: third trimester Qualified Code(s): O14.13 - Severe pre-eclamp judy, third trimester Plan - Discharge Medications Prescriptions: Ferrous Sulfate [Feosol 325 MG tab] 325 mg PO BID #60 tablet Ibuprofen [Motrin] 800 mg PO Q8HR PRN #30 tablet PRN Reason: Pain, Moderate (4-6) oxyCODONE /ACETAMINOPHEN [Percocet 5/325] 1 tab PO Q6HR PRN #40 tablet PRN Reason: Pain - Provider Discharge Summary Activity: routine, no sex for 6 weeks, no heavy lifting 4 weeks, no strenuous exercise Diet: routine Instructions: routine Additional instructions: [] Smoking cessation referral if applicable(refer to patient education folder for contact #) [] Refer to [facility] Booklet Call your doctor immediately for: * Fever > 100.5 * Heavy vaginal bleeding ( >1 pad per hour) * Severe persistent headache * Shortness of breath * Reddened, hot, painful area to leg or breast * Drainage or odor from incision. * Keep incision clean and dry at all times and follow doctor's instructions regarding bathing/showering - Follow up plan Follow up: ANGY WESLEY CNM [Advanced Practice Nurse] - 7 Days (Please schedule blood pressure check. Please schedule your son's circumcision before he is one month old. )
[2019-12-22] MEDS: oxyCODONE /ACETAMINOPHEN 5-325MG TAB PO PRN (09:13)
[2019-12-22] MEDS: FERROUS SULFATE 325 MG TAB PO SCH (09:13)
[2019-12-22 15:03] VITALS: BP 142/88
== END 2019-12-22 15:15 | disposition home or self-care (01) | DRG 765 ==
LOC: TRG 10:52 → APU 10:53 → LD 13:53 → TRG 14:23 → LD 14:25 → OB 12-20 23:14
PROVIDERS: ADMIT Obstetrics & Gynecology; ATTEND Obstetrics & Gynecology
PROC: 10D00Z1 Extraction of Products of Conception, Low, Open Approach (ICD-10-PCS; principal; 2019-12-19)
DX: O14.14 Severe pre-eclampsia complicating childbirth (principal); D62 Acute posthemorrhagic anemia; E84.9 Cystic fibrosis, unspecified; O99.02 Anemia complicating childbirth; O99.214 Obesity complicating childbirth; O45.93 Premature separation of placenta, unspecified, third trimester; E66.9 Obesity, unspecified; O99.824 Streptococcus B carrier state complicating childbirth; O75.3 Other infection during labor; Z3A.36 36 weeks gestation of pregnancy; Z37.0 Single live birth; Z80.9 Family history of malignant neoplasm, unspecified; Z79.899 Other long term (current) drug therapy
CPT/HCPCS: 36415; 59200; 81001; 82565; 82570; 83615; 83735; 84156; 84450; 84460; 84550; 85014; 85018; 85025; 85027; 86592; 86850; 86900; 86901; 87086; 88307; G0378; J0290; J0610; J0690; J0702; J1885; J2370; J2590; J2765; J3475; J3490; J7120